=== PATIENT | female | born 2000 ===

== ENCOUNTER 2022-10-25 06:15 | Inpatient (IN) ==
[2022-10-25] MEDS ORDERED: CARBOPROST TROMETHAMINE 250 MCG/ML AMP IM PRN (06:23)
[2022-10-25] MEDS ORDERED: FAMOTIDINE 20 MG/2 ML VIAL IV PRN (06:23)
[2022-10-25] MEDS ORDERED: ceFAZolin 2,000 MG/50 ML DUPLEX IV ONE (06:23)
[2022-10-25] MEDS ORDERED: METHYLERGONOVINE 0.2 MG/1 ML AMP IM PRN (06:23)
[2022-10-25] MEDS ORDERED: OXYTOCIN/LR 20 UNIT/1,000 ML BAG IV PRN (06:23)
[2022-10-25] MEDS ORDERED: TRANEXAMIC ACID 1,000 MG in SODIUM CHLORIDE 0.9% 100 ML IV PRN (06:23)
[2022-10-25] MEDS ORDERED: miSOPROStoL 200 MCG TABLET RECTAL PRN (06:23)
[2022-10-25] MEDS ORDERED: CITRIC ACID/SODIUM CITRATE 30 ML UDCUP PO PRN (06:23)
[2022-10-25] MEDS ORDERED: OXYTOCIN/LR 30 UNIT/1,000 ML BAG IV PRN (06:26)
[2022-10-25] MEDS ORDERED: diphenhydrAMINE 50 MG/1 ML VIAL IV PRN ×2 (06:27)
[2022-10-25] MEDS ORDERED: ONDANSETRON 4 MG/2 ML VIAL IV PRN ×2 (06:27→10:15)
[2022-10-25] MEDS ORDERED: hydrOXYzine HCL 25 MG/1 ML VIAL IM PRN (06:27)
[2022-10-25] MEDS ORDERED: PROMETHAZINE 25 MG/1 ML VIAL IM PRN (06:27)
[2022-10-25] MEDS ORDERED: LACTATED RINGERS 1,000 ML IV SCH (06:30)
[2022-10-25 06:49] LABS: Basophils % 0.3 % (0.0-0.8); Hematocrit 26.4 VOL% (35.7-47.0); Hemoglobin 7.8 GM/DL (12.0-16.0); Immature Granulocytes Absolute 0.07 #; Lymphocytes # 1.7 10*3/uL (1.4-4.0); Lymphocytes % 25.4 % (21.3-54.2); Mean Corpuscular HGB Conc 29.5 GM/DL (32-36); Mean Corpuscular Volume 68.9 FL (87-102); Monocytes # 0.4 10*3/uL (0.11-0.8); Monocytes % 5.8 % (1.7-12.7); Neutrophils % 67.5 % (38.7-73.9); Platelet Count 192 T/CUMM (130-400); Red Blood Count 3.83 MC/CUMM (3.8-5.5); Red Cell Distribution Width 18.7 % (9.3-17.3); White Blood Count 6.7 T/CUMM (4-12)
[2022-10-25 07:08] LABS: Albumin 2.9 G/DL (3.4-5.0); Bilirubin,Total 0.4 MG/DL (0.20-1.00); Calcium 8.3 MG/DL (8.5-10.1); Hypochromia 1+; Osmolality,Calculated 272.7 MOS/KG (273-304); Potassium 3.5 MMOL/L (3.5-5.1); Total Protein 7.5 G/DL (6.4-8.2)
[2022-10-25 07:09] LABS: Microcytosis 1+; Ovalocytes Few; Platelet Estimate Adequate
[2022-10-25] MEDS ORDERED: OXYTOCIN 10 UNIT/ML VIAL IM ONE (07:11)
[2022-10-25] MEDS ORDERED: SODIUM CHLORIDE 0.9% 1,000 ML IV PRN ×2 (07:13→14:55)
[2022-10-25] MEDS ORDERED: buprenorphine HCL 0.3 MG/ML VIAL ONE (08:56)
[2022-10-25] MEDS ORDERED: ONDANSETRON 4 MG/2 ML VIAL ONE (08:56)
[2022-10-25] MEDS ORDERED: PHENYLEPHRINE 1 MG/10 ML SYRINGE IV ONE (09:20)
[2022-10-25 09:51] LABS: Cord Arterial Blood HCO3 21.6 MMOL/L
[2022-10-25 09:53] LABS: Cord Venous Blood HCO3 22.7 MMOL/L; Cord Venous Blood PCO2 43.6 MMHG; Cord Venous Blood PO2 38.5
[2022-10-25] MEDS ORDERED: ACETAMINOPHEN 325 MG TABLET PO PRN (10:15)
[2022-10-25] MEDS ORDERED: OXYTOCIN/LR 20 UNIT/1,000 ML BAG IV ONE (10:15)
[2022-10-25] MEDS ORDERED: SIMETHICONE CHEW 80 MG TABLET PO PRN (10:15)
[2022-10-25] MEDS ORDERED: IBUPROFEN 800 MG TABLET PO PRN (10:15)
[2022-10-25] MEDS ORDERED: RHO(D) IMMUNE GLOBULIN 300 MCG SYRINGE IM ONE (10:15)
[2022-10-25] MEDS ORDERED: KETOROLAC 30 MG/1 ML VIAL ONE (10:16)
[2022-10-25 11:07] LABS: Mucus,Urine Occasional /LPF (Occasional); RBC,Urine 1 /HPF (0-4); Squamous Epithelial Cell,Urine Occasional /HPF (0-10)
[2022-10-25 11:09] LABS: Bilirubin,Urine Negative (Negative); Blood, Urine Negative (Negative); Glucose,Urine (UA) Negative (Negative); Ketones,Urine Negative (Negative); Nitrite,Urine Negative (Negative); Protein,Urine Negative (Negative); Urine Appearance Clear (Clear); Urine Color Yellow (Yellow); Urine Urobilinogen 0.2 eU/dL (<2.0); Urine pH 7.5 (4.5-8.0)
[2022-10-25] MEDS: LACTATED RINGERS 1,000 ML IV SCH ×2 (12:04→23:36)
[2022-10-25] MEDS ORDERED: ACETAMINOPHEN 500 MG TABLET PO PRN (13:00)
[2022-10-25 14:20] LABS: Basophils % 0.2 % (0.0-0.8); Eosinophils % 0.1 % (0.00-10.9); Hematocrit 26.9 VOL% (35.7-47.0); Hemoglobin 8.1 GM/DL (12.0-16.0); Immature Granulocytes % 0.7 %; Immature Granulocytes Absolute 0.08 #; Lymphocytes # 1.1 10*3/uL (1.4-4.0); Lymphocytes % 9.7 % (21.3-54.2); Mean Corpuscular HGB Conc 30.1 GM/DL (32-36); Mean Corpuscular Volume 71.2 FL (87-102); Monocytes # 0.7 10*3/uL (0.11-0.8); Monocytes % 6.2 % (1.7-12.7); Neutrophils % 83.1 % (38.7-73.9); Platelet Count 156 T/CUMM (130-400); Red Blood Count 3.78 MC/CUMM (3.8-5.5); Red Cell Distribution Width 20.7 % (9.3-17.3); White Blood Count 11.2 T/CUMM (4-12)
[2022-10-25] MEDS ORDERED: KETOROLAC 30 MG/1 ML VIAL IV PRN (16:00)
[2022-10-25] MEDS: KETOROLAC 30 MG/1 ML VIAL IV SCH ×2 (16:33→22:37)
[2022-10-25] MEDS: ACETAMINOPHEN 500 MG TABLET PO SCH (19:08)
[2022-10-25] MEDS: DOCUSATE SODIUM 100 MG CAPSULE PO SCH (20:51)
[2022-10-25 21:30] LABS: Hematocrit 29.2 VOL% (35.7-47.0); Hemoglobin 9.4 GM/DL (12.0-16.0)
[2022-10-26] MEDS: ACETAMINOPHEN 500 MG TABLET PO SCH ×3 (00:48→13:05)
[2022-10-26] MEDS: KETOROLAC 30 MG/1 ML VIAL IV SCH (03:50)
[2022-10-26 06:48] LABS: Basophils % 0.3 % (0.0-0.8); Hematocrit 25.7 VOL% (35.7-47.0); Hemoglobin 8.3 GM/DL (12.0-16.0); Immature Granulocytes % 0.6 %; Immature Granulocytes Absolute 0.04 #; Lymphocytes # 1.2 10*3/uL (1.4-4.0); Lymphocytes % 17.5 % (21.3-54.2); Mean Corpuscular HGB Conc 32.3 GM/DL (32-36); Mean Corpuscular Volume 75.4 FL (87-102); Monocytes # 0.6 10*3/uL (0.11-0.8); Monocytes % 8.4 % (1.7-12.7); NRBC # 0.02 10*3/uL; Neutrophils % 73.2 % (38.7-73.9); Platelet Count 138 T/CUMM (130-400); Red Blood Count 3.41 MC/CUMM (3.8-5.5); Red Cell Distribution Width 22.3 % (9.3-17.3)
[2022-10-26 07:20] LABS: Anisocytosis 1+; Ovalocytes Few; Platelet Estimate Adequate
[2022-10-26 07:21] LABS: Tear Drop Cells Few
[2022-10-26] MEDS: MAGNESIUM HYDROXIDE SUSP 30 ML UDCUP PO PRN ×2 (09:56→20:27)
[2022-10-26] MEDS: DOCUSATE SODIUM 100 MG CAPSULE PO SCH ×2 (09:57→20:20)
[2022-10-26] MEDS: MULTIVITAMIN (PRENATAL) TABLET PO SCH (09:57)
[2022-10-26] MEDS: METOCLOPRAMIDE 10 MG TABLET PO SCH ×2 (13:05→20:28)
[2022-10-26] MEDS ORDERED: METOCLOPRAMIDE 10 MG TABLET PO SCH (15:00)
[2022-10-27] MEDS: METOCLOPRAMIDE 10 MG TABLET PO SCH ×2 (01:27→08:40)
[2022-10-27] MEDS ORDERED: BENZOCAINE/MENTHOL LOZENGE 18/BOX PO PRN (07:43)
[2022-10-27 08:14] VITALS: BP 138/81
[2022-10-27] MEDS ORDERED: BISACODYL 10 MG SUPP RECTAL PRN (08:17)
[2022-10-27] MEDS: MAGNESIUM HYDROXIDE SUSP 30 ML UDCUP PO PRN (08:39)
[2022-10-27] MEDS: DOCUSATE SODIUM 100 MG CAPSULE PO SCH (08:39)
[2022-10-27] MEDS: MULTIVITAMIN (PRENATAL) TABLET PO SCH (08:40)
== END 2022-10-27 13:40 | disposition home or self-care (01) | DRG 540 ==
LOC: N.LD 06:15 → N.OB 21:42
PROVIDERS: ADMIT Obstetrics & Gynecology; ATTEND Obstetrics & Gynecology
PROC: LDCSECT (ICD-10-PCS; 2022-10-25 08:30)